=== PATIENT | male | born 1935 | race Caucasian/White ===

== ENCOUNTER 2018-01-08 16:25 | Inpatient (IN) | payer OTHER ==
[2018-01-08] MEDS ORDERED: MAGNESIUM SULFATE 1 gm IVPB 1 GM/100 ML BAG IV ONE (16:46)
[2018-01-08] MEDS ORDERED: METHYLPREDNISOLONE 125 MG INJ ONE (16:46)
[2018-01-08] MEDS ORDERED: LEVALBUTEROL 1.25 MG/3 ML NEB ONE (16:46)
[2018-01-08] MEDS ORDERED: IPRATROPIUM BROM 0.5MG/2.5ML ONE (16:46)
[2018-01-08 17:14] LABS: Absolute Lymphocytes (CBC) 0.3 K/uL (0.7-4.9); Absolute Monocytes 0.5 K/uL (0.1-1.3); Absolute Neutrophil 8.5 K/uL (1.8-8.0); Basophils % 0.1 % (0-1.3); Hematocrit 39.1 % (39.6-49.0); Lymphocytes % 3.2 % (15.3-44.8); MCH 31.1 pg (27.0-35.0); MCV 95.9 fL (80-100); MPV 7.1 fL (7.6-11.3); Monocytes % 5.5 % (3.3-12.3); RBC Red Blood Cell Count 4.08 M/uL (4.33-5.43)
--- NOTE | 2018-01-08 17:30 | EKG ---
Test Date: 2018-01-08 Test Time: 16:55:29 Tool Drawing Checker: YASMANY MEASUREMENT RESULTS: Intervals: Rate: 96 [place]: 246 QRSD: 76 QT: 346 QTc: 437 [place]: P: 81 [place]: 246 QRS: 133 T: 101 INTERPRETIVE STATEMENTS: Sinus rhythm with sinus arrhythmia with 1st degree AV block Left posterior fascicular block Abnormal ECG Compared to ECG 11/28/2016 07:44:26 Left posterior fascicular block now present Myocardial infarct finding no longer present Electronically Signed On 01-08-18 17:30:00 CDT by William Villa
[2018-01-08 17:36] LABS: Blood Morphology Comment NOT SEEN (NOT SEEN); Platelet Estimate ADEQ
[2018-01-08 17:41] LABS: BUN Blood Urea Nitrogen 15 mg/dL (7-18); Bicarbonate 37 mmol/L (21-32); Glucose Level 119 mg/dL (74-106); NT PRO-BNP 708 pg/mL (<450); Potassium 4.6 mmol/L (3.5-5.1); Sodium Level 123 mmol/L (136-145)
--- NOTE | 2018-01-08 17:43 | RAD REPORT ---
EXAM DESCRIPTION: RAD - Chest Single View - 01/08/2018 5:38 pm CLINICAL HISTORY: DYSPNEA Chest pain. COMPARISON: Chest Single View dated 11/28/2016; Chest Single View dated 10/02/2016; Chest Single View dated 09/30/2016; Chest Single View dated 09/30/2016 FINDINGS: Portable technique limits examination quality. Emphysematous changes are present throughout the lungs. No focal infiltrate detected. The heart is no rmal in size. No displaced fractures. IMPRESSION: Diffuse COPD.
[2018-01-08 18:26] LABS: Arterial Blood Carboxyhemoglob 0.8 % (0-1.5); Blood Gas Oxyhemoglobin 92.1 % (94-97)
--- NOTE | 2018-01-08 18:26 | EDPHYS ---
Physician Documentation [facility] Name: Marco Antonio Torrez Age: 82 yrs Sex: Male : 1935 Arrival Date: 01/08/2018 Time: 16:26 Bed 5 Private MD: Hernan Lopez F ED Physician Hans Grace HPI: 01/08 18:09 This 82 yrs old Male presents to ER via Wheelchair with complaints of rn Breathing Difficulty. 18:09 The patient has shortness of breath at rest. rn 18:10 Onset: The symptoms/episode began/occurred 3 day(s) ago. Duration: The symptoms are rn continuous. Severity of symptoms: At their worst the symptoms were moderate in the emergency department the symptoms are unchanged. The patient has experienced similar episodes in the past. Reports hx of COPD, states this is one of his worst flares, + nasal congestion and dry cough, no fever, helps with ipratropium but returns, dyspnea on exertion, no chest pain. . Historical: - Allergies: 16:32 No Known Allergies; sv - Home Meds: 16:32 Atrovent 0.03 % Nasal spry 2 sprays 3 times per day [Active]; Aldactone Oral [Active]; sv Anoro Ellipta 62.5-25 mcg/actuation inhalation dsdv 1 puff once daily [Active]; prednisone 10 mg Oral Tb24 once daily [Active]; Arnuity Ellipta 100 mcg/actuation inhalation dsdv 1 puff once daily [Active]; Alprazolam Oral [Active]; ProAir HFA 90 mcg/actuation inhalation HFAA 2 puffs every 4 hours [Active]; simvastatin 10 mg Oral Tb24 1 tab once daily [Active]; Synthroid 88 mcg Oral Tb24 1 tab once daily [Active]; tamsulosin 0.4 mg Oral cp24 1 cap nightly [Active]; lutien and omega 3 once a day [Active]; home O2 all the time [Active]; - PMHx: 16:32 Arthritis; Colitis; COPD; Hypothyroidism; PROSTATE CA; sv - PSHx: 16:32 L knee; cryo surgery on prostate to remove cancer; sinus; AAA repair; sv - Immunization history:: Adult Immunizations up to date. - Social history:: Smoking status: Patient/guardian denies using tobacco. - Family history:: not pertinent. - Ebola Screening: : Patient negative for fever greater than or equal to 101.5 degrees Fahrenheit, and additional compatible Ebola Virus Disease symptoms Patient denies exposure to infectious person Patient denies travel to an Ebola-affected area in the 21 days before illness onset No symptoms or risks identified at this time. - Hospitalizations: : No recent hospitalization is reported. ROS: 18:10 Constitutional: Negative for fever, chills, and weight loss, Eyes: Negative for injury, rn pain, redness, and discharge, Neck: Negative for injury, pain, and swelling, Cardiovascular: Negative for chest pain, palpitations, and edema, Respiratory: + cough and sob Abdomen/GI: Negative for abdominal pain, nausea, vomiting, diarrhea, and constipation, MS/Extremity: Negative for injury and deformity, Skin: Negative for injury, rash, and discoloration, Neuro: + generalized weakness Exam: 18:10 Constitutional: This is a well developed, well nourished patient who is awake, alert, rn sitting upright, appears uncomfortable Head/Face: Normocephalic, atraumatic. Neck: Trachea midline, no thyromegaly or masses palpated, and no cervical lymphadenopathy. Supple, full range of motion without nuchal rigidity, or vertebral point tenderness. No Meningismus. Cardiovascular: Regular rate and rhythm with a normal S1 and S2. No gallops, murmurs, or rubs. Normal PMI, no JVD. No pulse deficits. Respiratory: + moderate tachypnea with pursed lip breathing, minimal air movement Abdomen/GI: Soft, non-tender, with normal bowel sounds. No distension or tympany. No guarding or rebound. No evidence of tenderness throughout. MS/ Extremity: Pulses equal, no cyanosis. Neurovascular intact. Full, normal range of motion. Equal circumference. Neuro: Awake and alert, GCS 15, oriented to person, place, time, and situation. Cranial nerves II-XII grossly intact. Motor strength 5/5 in all extremities. Sensory grossly intact. Vital Signs: 16:32 BP 117 / 86; Pulse 87; Resp 22; Pulse Ox 99% on 2.5 lpm NC; Weight 81.65 kg; Height 5 sv ft. 10 in. (177.80 cm); 16:35 Pulse Ox 88% on R/A; aj 17:00 BP 133 / 97; Pulse 98; Resp 24; Pulse Ox 95% on 3 lpm NC; aj 17:30 BP 138 / 76; Pulse 94; Resp 23; Pulse Ox 99% on 3 lpm NC; aj 17:45 BP 121 / 70; Pulse 100; Resp 24; Pulse Ox 96% on 3 lpm NC; aj 18:16 BP 142 / 95; Pulse 83; Resp 24; Pulse Ox 95% on 3 lpm NC; aj 19:10 BP 141 / 88; Pulse 82; Resp 18 S; Pulse Ox 100% on BiPAP; ea 16:32 Body Mass Index 25.83 (81.65 kg, 177.80 cm) sv MDM: 16:34 Patient medically screened. rn 18:13 Differential diagnosis: Chronic Obstructive Pulmonary Disease Pneumothorax pulmonary rn edema, reactive airway disease. Data reviewed: vital signs, nurses notes, lab test result(s), radiologic studies, plain films, and as a result, I will discharge patient. Counseling: I had a detailed discussion with the patient and/or guardian regarding: the historical points, exam findings, and any diagnostic results supporting the discharge/admit diagnosis, lab results, radiology results, the need for further work-up and treatment in the hospital. Response to treatment: the patient's symptoms have mildly improved after treatment. Admission orders: after a detailed discussion of the patient's condition and case, the admit orders are written by me. ED course: Pt still not back to baseline, will admit to Dr. Lopez, Dr. Hernadez covering, requests bipap and baseline ABG. . 01/08 16:43 Order name: Blood Culture Adult (2) rn 01/08 16:43 Order name: BMP; Complete Time: 17:59 rn 01/08 16:43 Order name: CBC with Diff; Complete Time: 17:45 rn 01/08 16:43 Order name: Troponin (emerg Dept Use Only); Complete Time: 17:45 rn 01/08 16:43 Order name: BNP; Complete Time: 17:59 rn 01/08 17:17 Order name: Manual Differential; Complete Time: 17:45 EDMS 01/08 16:43 Order name: XRAY CXR (1 view); Complete Time: 17:45 rn 01/08 16:43 Order name: EKG; Complete Time: 16:44 rn 01/08 18:07 Order name: ABG; Complete Time: 18:43 rn 01/08 18:07 Order name: BIPAP rn 01/08 16:43 Order name: Cardiac monitoring; Complete Time: 17: rn 01/08 16:43 Order name: EKG - Nurse/Tech; Complete Time: 17: rn 01/08 16:43 Order name: IV Saline Lock; Complete Time: 17: rn 01/08 16:43 Order name: Labs collected and sent; Complete Time: 17: rn 01/08 16:43 Order name: O2 Per Protocol; Complete Time: 17: rn 01/08 16:43 Order name: O2 Sat Monitoring; Complete Time: 17:02 rn Administered Medications: 17:00 Drug: Magnesium Sulfate 1 grams Route: IVPB; Infused Over: 1 hrs; Site: right aj antecubital; 20:21 Follow up: Response: No adverse reaction; IV Status: Completed infusion ea 17:01 Drug: SOLU-Medrol 125 mg Route: IVP; Site: right antecubital; aj 19:12 Follow up: Response: No adverse reaction ea 17:01 Drug: Xopenex (3) 1.25 mg Route: Inhalation; aj 17:01 Drug: AtroVENT Aerosol 0.5 mg Route: Inhalation; Disposition: 18:13 Critical Care:. rn Disposition: 01/08/18 18:25 Hospitalization ordered by Hernan Lopez for Inpatient Admission. Preliminary diagnosis are Chronic obstructive pulmonary disease, unspecified, Dyspnea, unspecified. - Bed requested for Telemetry/MedSurg (Inpatient). - Status is Inpatient Admission. ea - Condition is Stable. - Problem is new. - Symptoms have improved. UTI on Admission? No Critical care time excluding procedures: 18:13 Critical care time: Bedside Care: 20 minutes, Consultation: 5 minutes, Family rn Intervention: 5 minutes. Total time: 30 minutes Signatures: Dispatcher [employer] EDTiffany Jeffers Stephanie, RN RN sv Myers, Amanda, RN RN aj Nieto, Roman, MD MD rn Antunez, Elena, RN RN ea Corrections: (The following items were deleted from the chart) 18:20 18:10 Constitutional: This is a well developed, well nourished patient who is awake, rn alert, sitting upright, appears uncomfortable rn 18:41 18:25 Hospitalization Ordered by Hernan Lopez MD for Inpatient Admission. Preliminary bd diagnosis is Chronic obstructive pulmonary disease, unspecified; Dyspnea, unspecified. Bed requested for Telemetry/MedSurg (Inpatient). Status is Inpatient Admission. Condition is Stable. Problem is new. Symptoms have improved. UTI on Admission? No. rn 20:24 18:41 01/08/2018 18:25 Hospitalization Ordered by Hernan Lopez MD for Inpatient ea Admission. Preliminary diagnosis is Chronic obstructive pulmonary disease, unspecified; Dyspnea, unspecified. Bed requested for Telemetry/MedSurg (Inpatient). Status is Inpatient Admission. Condition is Stable. Problem is new. Symptoms have improved. UTI on Admission? No. bd
--- NOTE | 2018-01-08 18:26 | ER ---
Nurse's Notes [facility] Name: Marco Antonio Torrez Age: 82 yrs Sex: Male : 1935 Arrival Date: 01/08/2018 Time: 16:26 Bed 5 Private MD: Hernan Lopez F Diagnosis: Chronic obstructive pulmonary disease, unspecified;Dyspnea, unspecified Presentation: 01/08 16:29 Presenting complaint: Patient states: SOB worsened over the last couple of days. Nasal sv drainage. Pt uses O2 \T\ 2.5 L per NC. Transition of care: patient was not received from another setting of care. Onset of symptoms was January 06, 2018. Risk Assessment: Do you want to hurt yourself or someone else? Patient reports no desire to harm self or others. Care prior to arrival: None. 16:29 Method Of Arrival: Wheelchair sv 16:29 Acuity: NATALIE 3 sv 20:19 Initial Sepsis Screen: Does the patient meet any 2 criteria? No. Patient's initial ea sepsis screen is negative. Does the patient have a suspected source of infection? No. Patient's initial sepsis screen is negative. Triage Assessment: 19:00 Respiratory: the patient has mild shortness of breath. ea 20:20 Respiratory: Onset: The symptoms/episode began/occurred. ea Historical: - Allergies: 16:32 No Known Allergies; sv - Home Meds: 16:32 Atrovent 0.03 % Nasal spry 2 sprays 3 times per day [Active]; Aldactone Oral [Active]; sv Anoro Ellipta 62.5-25 mcg/actuation inhalation dsdv 1 puff once daily [Active]; prednisone 10 mg Oral Tb24 once daily [Active]; Arnuity Ellipta 100 mcg/actuation inhalation dsdv 1 puff once daily [Active]; Alprazolam Oral [Active]; ProAir HFA 90 mcg/actuation inhalation HFAA 2 puffs every 4 hours [Active]; simvastatin 10 mg Oral Tb24 1 tab once daily [Active]; Synthroid 88 mcg Oral Tb24 1 tab once daily [Active]; tamsulosin 0.4 mg Oral cp24 1 cap nightly [Active]; lutien and omega 3 once a day [Active]; home O2 all the time [Active]; - PMHx: 16:32 Arthritis; Colitis; COPD; Hypothyroidism; PROSTATE CA; sv - PSHx: 16:32 L knee; cryo surgery on prostate to remove cancer; sinus; AAA repair; sv - Immunization history:: Adult Immunizations up to date. - Social history:: Smoking status: Patient/guardian denies using tobacco. - Family history:: not pertinent. - Ebola Screening: : Patient negative for fever greater than or equal to 101.5 degrees Fahrenheit, and additional compatible Ebola Virus Disease symptoms Patient denies exposure to infectious person Patient denies travel to an Ebola-affected area in the 21 days before illness onset No symptoms or risks identified at this time. - Hospitalizations: : No recent hospitalization is reported. Screenin:14 Abuse screen: Denies threats or abuse. Denies injuries from another. Nutritional aj screening: No deficits noted. Tuberculosis screening: No symptoms or risk factors identified. Fall Risk None identified. Assessment: 16:35 General: Appears in no apparent distress. uncomfortable, Behavior is calm, cooperative, aj appropriate for age. Pain: Denies pain. Neuro: Level of Consciousness is awake, alert, obeys commands, Oriented to person, place, time, situation, Appropriate for age. Cardiovascular: Capillary refill < 3 seconds in bilateral fingers Patient's skin is warm and dry. Rhythm is atrial fibrillation. Respiratory: Reports shortness of breath at rest Airway is patent Respiratory effort is even, pursed lip, Respiratory pattern is symmetrical, tachypnea Breath sounds are diminished bilaterally. GI: Abdomen is round. Derm: Skin is intact, is fragile, is thin, Skin is pink, warm \T\ dry. normal. 19:15 General: Appears in no apparent distress. Behavior is calm, cooperative, appropriate ea for age. Pain: Denies pain. Neuro: Level of Consciousness is awake, alert, obeys commands, Oriented to person, place, time, situation. Cardiovascular: Heart tones S1 S2 present Patient's skin is warm and dry. Respiratory: Airway is patent Respiratory effort is even, Pt currently on BiPap Respiratory pattern is regular, symmetrical, Breath sounds are diminished in left lower lobe and right lower lobe. GI: Abdomen is round Patient currently denies abdominal pain. : No signs and/or symptoms were reported regarding the genitourinary system. EENT: No signs and/or symptoms were reported regarding the EENT system. Derm: Skin is pink, warm \T\ dry. 20:16 Reassessment: Patient and/or family updated on plan of care and expected duration. Pain ea level reassessed. Patient is alert, oriented x 3, equal unlabored respirations, skin warm/dry/pink. Report given to receiving nurse on fourth floor. Vital Signs: 16:32 BP 117 / 86; Pulse 87; Resp 22; Pulse Ox 99% on 2.5 lpm NC; Weight 81.65 kg; Height 5 sv ft. 10 in. (177.80 cm); 16:35 Pulse Ox 88% on R/A; aj 17:00 BP 133 / 97; Pulse 98; Resp 24; Pulse Ox 95% on 3 lpm NC; aj 17:30 BP 138 / 76; Pulse 94; Resp 23; Pulse Ox 99% on 3 lpm NC; aj 17:45 BP 121 / 70; Pulse 100; Resp 24; Pulse Ox 96% on 3 lpm NC; aj 18:16 BP 142 / 95; Pulse 83; Resp 24; Pulse Ox 95% on 3 lpm NC; aj 19:10 BP 141 / 88; Pulse 82; Resp 18 S; Pulse Ox 100% on BiPAP; ea 16:32 Body Mass Index 25.83 (81.65 kg, 177.80 cm) sv ED Course: 16:26 Patient arrived in ED. mr 16:27 Hernan Lopez MD is Private Physician. mr 16:30 Triage completed. sv 16:32 Arm band placed on right wrist. sv 16:34 Hans Grace MD is Attending Physician. rn 16:35 Inserted saline lock: 20 gauge in right antecubital area, using aseptic technique. aj Blood collected. Oxygen administration via nasal cannula \T\ 3L/min. 16:40 Patient has correct armband on for positive identification. monitor worker on. Pulse aj ox on. NIBP on. 17:00 Екатерина Meza, MARINA is Primary Nurse. aj 17:01 EKG done, by network support technician. reviewed by Hans Grace MD. sm3 17:23 X-ray completed. Portable x-ray completed in exam room. Patient tolerated procedure kc2 well. 17:36 XRAY CXR (1 view) In Process Unspecified. EDMS 18:24 Hernan Lopez MD is Hospitalizing Provider. rn 19:09 Katharina Zazueta, MARINA is Primary Nurse. ea 20:17 No provider procedures requiring assistance completed. Patient admitted, IV remains in ea place. Administered Medications: 17:00 Drug: Magnesium Sulfate 1 grams Route: IVPB; Infused Over: 1 hrs; Site: right aj antecubital; 20:21 Follow up: Response: No adverse reaction; IV Status: Completed infusion ea 17:01 Drug: SOLU-Medrol 125 mg Route: IVP; Site: right antecubital; aj 19:12 Follow up: Response: No adverse reaction ea 17:01 Drug: Xopenex (3) 1.25 mg Route: Inhalation; aj 17:01 Drug: AtroVENT Aerosol 0.5 mg Route: Inhalation; Outcome: 18:25 Decision to Hospitalize by Provider. rn 20:17 Admitted to Med/surg accompanied by tech, via stretcher, room 422, with oxygen, with ea chart, Report called to Receiving nurse on fourth. 20:17 Condition: stable 20:17 Instructed on the need for admit. 20:24 Patient left the ED. ea Signatures: Dispatcher [employer] Nazanin Begum, Екатерина Berg RN RN Holley Terrell Roman, MD MD rn Carr, Kelsie kc2 Katharina Zazueta RN RN ea Montes, Shakira 3
[2018-01-08] MEDS ORDERED: IPRATROPIUM BROM 0.5MG/2.5ML NEB PRN (20:35)
[2018-01-08] MEDS ORDERED: ALBUTEROL 2.5 MG/3 ML NEB SOL NEB PRN (20:35)
[2018-01-08] MEDS ORDERED: ONDANSETRON 4 MG/2 ML VIAL IV PRN (20:35)
[2018-01-08 20:55] VITALS: BMI 25.2
[2018-01-09] MEDS: ARFORMOTEROL TARTRATE 15 MCG/2 ML VIAL.NEB NEB SCH ×3 (00:05→19:33)
[2018-01-09] MEDS ORDERED: ALPRAZOLAM 0.25 MG TABLET PO PRN (00:07)
[2018-01-09] MEDS: levoFLOXacin 500 MG TAB PO SCH ×2 (00:31→09:48)
[2018-01-09] MEDS: METHYLPREDNISOLONE 40 MG INJ IV SCH ×3 (00:31→16:54)
[2018-01-09 05:02] LABS: Absolute Lymphocytes (CBC) 0.4 K/uL (0.7-4.9); Absolute Monocytes 0.1 K/uL (0.1-1.3); Absolute Neutrophil 8.6 K/uL (1.8-8.0); Basophils % 0.1 % (0-1.3); Hematocrit 37.5 % (39.6-49.0); Lymphocytes % 4.3 % (15.3-44.8); MCH 30.9 pg (27.0-35.0); MCV 94.9 fL (80-100); MPV 7.4 fL (7.6-11.3); RBC Red Blood Cell Count 3.95 M/uL (4.33-5.43)
[2018-01-09 05:08] LABS: Potassium 4.7 mmol/L (3.5-5.1)
[2018-01-09] MEDS: LEVOTHYROXINE SOD 0.088 MG TAB PO SCH (07:12)
[2018-01-09] MEDS: NITROFURAN MACRO 100 MG CAP PO SCH ×2 (09:48→20:09)
[2018-01-09] MEDS: clonazePAM 0.5 MG TAB PO SCH (09:48)
--- NOTE | 2018-01-09 10:10 | P.CNS ---
Date of Consult: 01/09/18 Reason for Consult: COPD exacerbation Chief Complaint: Shortness of breath History of Present Illness: The patient is 82 years of age admitted with worsening dyspnea over the past 2 weeks he has terminal COPD last exacerbation was about a year ago been coughing up some productive phlegm me patient increase his prednisone to 30 mg at home with no relief is doing much better today denies any edema wants to go home Allergies No Known Allergies Allergy (Verified 01/09/18 02:22) Home Medications: Levothyroxine [Synthroid*] 88 mcg PO [id number] 02/04/16 Simvastatin [Zocor*] 10 mg PO BEDTIME 02/04/16 predniSONE [Deltasone*] 10 mg PO DAILY 02/04/16 Albuterol Sulfate [Proair Hfa] 2 puff IH QID PRN 09/30/16 Fluticasone Furoate [Arnuity Ellipta] 1 puff IH DAILY 09/30/16 [place]-3/Dha/Epa/Lut/Zeaxanthin [[facility] Softgel] 1 cap PO DAILY Umeclidinium Brm/Vilanterol Tr [Anoro Ellipta 62.5-25 Mcg INH] 1 each IH DAILY 09/30/16 Alprazolam [Xanax] 0.25 mg PO TID PRN 01/09/18 Ipratropium [Atrovent 0.03% (21MCG)/[place] Nasal*] 2 sprays .ROUTE TID PRN Mesalamine 0.2 gm PO BID 01/09/18 Nitrofurantoin Macrocrystal [Macrodantin] 100 mg PO BID 01/09/18 Spironolactone 25 mg PO BID 01/09/18 clonazePAM [Clonazepam] 0.5 mg PO DAILY 01/09/18 levoFLOXacin [Levaquin*] 500 mg PO DAILY #7 tab 01/09/18 Ipratropium/Albuterol Sulfate [Iprat-Albut 0.5-3(2.5) mg/3 ml] 3 ml IH TID #90 ampul.neb 01/10/18 - Past Medical/Surgical History Diabetic: No -: Terminal COPD -: colitis -: arthritis -: Hypothyrodism -: Prostate cancer -: abdomen surgery -: left knee surgery - Family History Father Medical History: Heart disease, Lung disease Mother Medical History: Heart disease - Social History Smoking Status: Former smoker Alcohol use: No CD- Drugs: No Caffeine use: No Place of Residence: Home Review of Systems 10-point ROS is otherwise unremarkable General: Weakness Respiratory: Cough, Shortness of Breath Physical Examination Temp Pulse Resp BP Pulse Ox 97.1 F 93 H 16 158/68 H 99 01/09/18 07:51 01/09/18 07:51 01/09/18 07:51 01/09/18 07:51 01/09/18 07:51 General: Alert, Oriented x3, Mild distress HEENT: Atraumatic Neck: Supple Respiratory: Diminished, Expiratory wheezes Cardiovascular: No edema, Regular rate/rhythm Gastrointestinal: Normal bowel sounds, Soft and benign Laboratory Data (last 24 hrs) 01/08/18 16:55: WBC 9.3, Hgb 12.7 L, Hct 39.1 L, Plt Count 413 H 01/08/18 16:55: Sodium 123 L, Potassium 4.6, BUN 15, Creatinine 0.70, Glucose 119 H - Problems (1) COPD (chronic obstructive pulmonary disease) Onset Date: 10/01/16 Current Visit: No Status: Acute Plan: Patient is 82 years of age with terminal COPD admitted with an exacerbation he is back to his baseline chest x-rays clear no evidence of ongoing sepsis I suggest keeping in him for another day and has patient is high risk and he took high doses of steroids at home discharge tomorrow on prednisone 10 b.i.d. in addition to some levofloxacin patient is mildly hyponatremia Qualifiers: COPD type: COPD with acute exacerbation Qualified Code(s): J44.1 - Chronic obstructive pulmonary disease with (acute) exacerbation
[2018-01-09 10:17] LABS: Urine Appearance CLEAR; Urine Bilirubin NEGATIVE (NEG); Urine Blood NEGATIVE (NEG); Urine Color YELLOW; Urine Glucose 2+ (NEG); Urine Protein TRACE (NEG); Urine Specific Gravity 1.025 (1.005-1.030); Urine pH 6.5 (5.0-7.0)
[2018-01-09 10:28] LABS: Urine Bacteria <20 /HPF (NONE SEEN); Urine Culture Reflex Order NOT NEEDED; Urine RBC <5 /HPF (NONE SEEN)
--- NOTE | 2018-01-09 11:13 | RAD REPORT ---
EXAM DESCRIPTION: RAD - Chest Single View - 01/09/2018 6:11 am CLINICAL HISTORY: COPD Chest pain. COMPARISON: Chest Single View dated 01/08/2018; Chest Single View dated 11/28/2016; Chest Single View dated 10/02/2016; Chest Single View dated 09/30/2016 FINDINGS: Portable technique limits examination quality. Ill-defined right basilar lung opacity has developed since the comparative study, which may represent aspiration or atelectasis. The lungs are otherwise emphysematous. The heart is normal in size. No di splaced fractures. IMPRESSION: Ill-defined right basilar lung opacity has developed since comparative study, which may be secondary to aspiration or atelectasis.
[2018-01-09] MEDS: MESALAMINE PO SCH (20:12)
[2018-01-09] MEDS ORDERED: ATORVASTATIN 10 MG TAB PO SCH ×2 (21:00→23:42)
[2018-01-10] MEDS: METHYLPREDNISOLONE 40 MG INJ IV SCH ×2 (00:28→08:30)
[2018-01-10] MEDS: LEVOTHYROXINE SOD 0.088 MG TAB PO SCH (05:37)
[2018-01-10] MEDS: ARFORMOTEROL TARTRATE 15 MCG/2 ML VIAL.NEB NEB SCH (07:37)
[2018-01-10 08:23] VITALS: BP 121/66; TEMP 97.9
[2018-01-10] MEDS: levoFLOXacin 500 MG TAB PO SCH (08:30)
[2018-01-10] MEDS: NITROFURAN MACRO 100 MG CAP PO SCH (08:30)
[2018-01-10] MEDS: clonazePAM 0.5 MG TAB PO SCH (08:30)
[2018-01-10] MEDS: MESALAMINE PO SCH (08:31)
[2018-01-10 09:33] VITALS: O2SAT 100
--- NOTE | 2018-01-10 10:32 | P.DS ---
Admission Date: 01/08/18 Discharge Date: 01/10/18 Disposition: ROUTINE DISCHARGE Discharge Condition: FAIR Reason for Admission: Shortness of breath - Problems (1) COPD (chronic obstructive pulmonary disease) Onset Date: 10/01/16 Current Visit: No Status: Acute Qualifiers: COPD type: COPD with acute exacerbation Qualified Code(s): J44.1 - Chronic obstructive pulmonary disease with (acute) exacerbation Brief History of Present Illness: The patient is 82 years of age admitted with worsening dyspnea over the past 2 weeks he has terminal COPD last exacerbation was about a year ago been coughing up some productive phlegm me patient increase his prednisone to 30 mg at home with no relief is doing much better today denies any edema wants to go home Hospital Course: Patient is 82 years of age admitted with COPD exacerbation labs unremarkable no evidence of an infection. He did well during the course of his stay unremarkable stay patient to be discharged home on his regular medication I have also fax the prescription in for a nebulizer and nebulizer medication pertinent labs include mild hyponatremia oxygenation vital signs all satisfactory cultures negative he is to resume all his home medication except to increase prednisone to 10 twice a day for 10 days and I have also sent in a prescription in for levofloxacin Vital Signs/Physical Exam: Temp Pulse Resp BP Pulse Ox 97.9 F 84 20 121/66 100 01/10/18 08:00 01/10/18 08:00 01/10/18 08:00 01/10/18 08:00 01/10/18 08:00 Laboratory Data at Discharge: WBC 9.1 K/uL (4.3-10.9) 01/09/18 04:27 Hgb 12.2 g/dL (13.6-17.9) L 01/09/18 04:27 Hct 37.5 % (39.6-49.0) L 01/09/18 04:27 Plt Count 396 K/uL (152-406) 01/09/18 04:27 Sodium 126 mmol/L (136-145) L 01/09/18 04:27 Potassium 4.7 mmol/L (3.5-5.1) 01/09/18 04:27 BUN 18 mg/dL (7-18) 01/09/18 04:27 Creatinine 0.90 mg/dL (0.55-1.3) 01/09/18 04:27 Glucose 201 mg/dL (74-106) H 01/09/18 04:27 Home Medications: Levothyroxine [Synthroid*] 88 mcg PO [id number] 02/04/16 Simvastatin [Zocor*] 10 mg PO BEDTIME 02/04/16 predniSONE [Deltasone*] 10 mg PO DAILY 02/04/16 Albuterol Sulfate [Proair Hfa] 2 puff IH QID PRN 09/30/16 Fluticasone Furoate [Arnuity Ellipta] 1 puff IH DAILY 09/30/16 [place]-3/Dha/Epa/Lut/Zeaxanthin [[facility] Softgel] 1 cap PO DAILY Umeclidinium Brm/Vilanterol Tr [Anoro Ellipta 62.5-25 Mcg INH] 1 each IH DAILY 09/30/16 Alprazolam [Xanax] 0.25 mg PO TID PRN 01/09/18 Ipratropium [Atrovent 0.03% (21MCG)/[place] Nasal*] 2 sprays .ROUTE TID PRN Mesalamine 0.2 gm PO BID 01/09/18 Nitrofurantoin Macrocrystal [Macrodantin] 100 mg PO BID 01/09/18 Spironolactone 25 mg PO BID 01/09/18 clonazePAM [Clonazepam] 0.5 mg PO DAILY 01/09/18 levoFLOXacin [Levaquin*] 500 mg PO DAILY #7 tab 01/09/18 Ipratropium/Albuterol Sulfate [Iprat-Albut 0.5-3(2.5) mg/3 ml] 3 ml IH TID #90 ampul.neb 01/10/18 New Medications: Ipratropium/Albuterol Sulfate [Iprat-Albut 0.5-3(2.5) mg/3 ml] 3 ml IH TID #90 ampul.neb levoFLOXacin [Levaquin*] 500 mg PO DAILY #7 tab Patient Discharge Instructions: Patient can be discharged home to take prednisone 10 mg twice a day for 2 weeks levofloxacin called in for 7 days resume other home medications Diet: Regular Activity: Ad trev Followup: Hernan Lopez MD [Primary Care Provider] - 1-2 Weeks (Please call office to schedule follow up appointment. )
== END 2018-01-10 11:24 | disposition home or self-care (01) | DRG 192 ==
LOC: ER 16:25 → ERHOLD 18:27 → 4TH 19:39
PROVIDERS: ADMIT Internal Medicine Sleep Medicine; ATTEND Internal Medicine
PROC: 5A09357 Assistance with Respiratory Ventilation, Less than 24 Consecutive Hours, Continuous Positive Airway Pressure (ICD-10-PCS; principal; 2018-01-08)
DX: J44.1 Chronic obstructive pulmonary disease with (acute) exacerbation (principal); M19.90 Unspecified osteoarthritis, unspecified site; E03.9 Hypothyroidism, unspecified
CPT/HCPCS: 36415; 71045; 80048; 81001; 82805; 83880; 84484; 85025; 87040; 93005; 94640; 94660; 94760; 96365; 96366; 96375; 99285; J2920; J2930; J3475; J7605

== ENCOUNTER 2018-02-04 12:00 | Inpatient (IN) | payer OTHER ==
[2018-02-04] MEDS ORDERED: LEVALBUTEROL 1.25 MG/3 ML NEB ONE ×2 (12:06→13:37)
[2018-02-04] MEDS ORDERED: METHYLPREDNISOLONE 125 MG INJ ONE (12:12)
[2018-02-04] MEDS ORDERED: NA CHLORIDE 0.9% 500 ML ONE (12:12)
[2018-02-04] MEDS ORDERED: Magnesium Sulfate 1gm IVPB 1 GM/50 ML BAG IV ONE (12:12)
[2018-02-04 12:29] LABS: Absolute Lymphocytes (CBC) 0.5 K/uL (0.7-4.9); Absolute Monocytes 0.6 K/uL (0.1-1.3); Absolute Neutrophil 9.2 K/uL (1.8-8.0); Basophils % 0.1 % (0-1.3); Eosinophils % 0.1 % (0-4.4); Hematocrit 35.9 % (39.6-49.0); Lymphocytes % 5.2 % (15.3-44.8); MCH 31.2 pg (27.0-35.0); MCV 94.6 fL (80-100); MPV 7.4 fL (7.6-11.3); RBC Red Blood Cell Count 3.79 M/uL (4.33-5.43)
[2018-02-04 12:32] LABS: Protime INR 1.08
[2018-02-04 12:41] LABS: BUN Blood Urea Nitrogen 16 mg/dL (7-18); Bicarbonate 32 mmol/L (21-32); Glucose Level 187 mg/dL (74-106); Magnesium 2.5 mg/dL (1.8-2.4); NT PRO-BNP 931 pg/mL (<450); Potassium 4.5 mmol/L (3.5-5.1); Sodium Level 134 mmol/L (136-145)
[2018-02-04 12:59] LABS: Blood Morphology Comment NOT SEEN (NOT SEEN); Platelet Estimate ADEQ
--- NOTE | 2018-02-04 13:21 | RAD REPORT ---
EXAM DESCRIPTION: RAD - Chest Single View - 02/04/2018 1:03 pm CLINICAL HISTORY: DYSPNEA Chest pain. COMPARISON: Chest Single View dated 01/09/2018; Chest Single View dated 01/08/2018; Chest Single View dated 11/28/2016; Chest Single View dated 10/02/2016 FINDINGS: Portable technique limits examination quality. The lungs are emphysematous grossly clear. The heart is normal in size. No displaced fractures. IMPRESSION: COPD.
[2018-02-04] MEDS ORDERED: IPRATROPIUM BROM 0.5MG/2.5ML ONE (13:37)
--- NOTE | 2018-02-04 13:52 | EKG ---
Test Date: 2018-02-04 Test Time: 12:12:44 Retail Field Representative: ROMY MEASUREMENT RESULTS: Intervals: Rate: 139 NH: 186 QRSD: 80 QT: 314 QTc: 477 [place]: P: 106 NH: 186 QRS: 79 T: 88 INTERPRETIVE STATEMENTS: Sinus tachycardia with premature atrial complexes Cannot rule out Anterior infarct, age undetermined Abnormal ECG Compared to ECG 01/08/2018 16:55:29 Atrial premature complex(es) now present Myocardial infarct finding now present Sinus rhythm no longer present Sinus arrhythmia no longer present First degree AV block no longer present Left posterior fascicular block no longer present Electronically Signed On 02-04-18 13:51:31 CDT by William Villa
--- NOTE | 2018-02-04 14:17 | RAD REPORT ---
EXAM DESCRIPTION: CT - Chest For Pe Angio - 02/04/2018 2:06 pm CLINICAL HISTORY: Chest pain. DYSPNEA COMPARISON: Chest For Pe Angio dated 09/30/2016 TECHNIQUE: CT angiogram of the pulmonary arteries was performed with MIP. All CT scans are performed using dose optimization technique as appropriate and may include automated exposure control or mA/KV adjustment according to patient size. FINDINGS: No evidence of pulmonary thromboembolism. No acute aortic finding demonstrated. Atherosclerotic changes present involving aortic arch great ves freeman origins. Prominent advanced COPD pattern is seen. A spiculated soft tissue mass is identified in the right inf rahilar region measuring 19 x 18 mm abutting the inferior right pulmonary vein. No significant pericardial or pleural fluid. No concerning bony finding. IMPRESSION: No evidence of pulmonary thromboembolism. Advanced COPD. Spiculated soft tissue mass is detected right infrahilar region abutting the right inf erior pulmonary vein (19 x 18 mm) quite worrisome for malignancy. Recommend PET-CT followup assessmen t or bronchoscopy for further workup.
--- NOTE | 2018-02-04 14:22 | RAD REPORT ---
EXAM DESCRIPTION: CT - Soft Tissue Neck W/Contr CLINICAL HISTORY: dyspnea, possible foreign body Neck pain COMPARISON: No comparisons TECHNIQUE All CT scans are performed using dose optimization technique as appropriate and may includ e automated exposure control or mA/KV adjustment according to patient size. FINDINGS: Nasopharyngeal tissues are normal in appearance. Fossa Rosenmller are normal. Parapharyngeal fat triangles are symmetric. Tongue base structures are normal. Epiglottis and aryepiglottic folds are normal. Piriform sinuses are well aerated. The vocal cords are normal in appearance. Salivary glands are normal in appearance. Moderate lower cervical degenerative changes are present. The upper lung marte are emphysematous. No foreign body visualized. IMPRESSION: No foreign body is visualized. No acute or aggressive neck abnormality detected.
--- NOTE | 2018-02-04 14:49 | ER ---
Nurse's Notes [facility] Name: Marco Antonio Torrez Age: 82 yrs Sex: Male : 1935 Arrival Date: 02/04/2018 Time: 12:01 Bed 4 Private MD: Hernan Lopez F Diagnosis: Chronic obstructive pulmonary disease with (acute) exacerbation;Hypoxemia;Lung mass Presentation: 02/04 12:04 Presenting complaint: EMS states: pt was eating breakfast tacos this morning when he sg began to choke on some food, after coughing he felt better but still felt like food was in his throat, pt reports difficulty breathing at rest. Transition of care: patient was not received from another setting of care. Onset of symptoms was February 04, 2018. Risk Assessment: Do you want to hurt yourself or someone else? Patient reports no desire to harm self or others. Initial Sepsis Screen: Does the patient meet any 2 criteria? No. Patient's initial sepsis screen is negative. Does the patient have a suspected source of infection? No. Patient's initial sepsis screen is negative. Note EMS report 78 % o2 saturation on 2.5 lpm NC, placed to NRB and increased to 97 % on 15 lpm, upon auscultation of lungs reports crackles throughout lung bases posteriorly. Care prior to arrival: IV initiated. 20 GA, in the left hand, Oxygen administered. via a non-rebreather mask. 12:04 Acuity: NATALIE 2 sg 12:04 Method Of Arrival: EMS: [facility] sg Triage Assessment: 12:15 General: Appears distressed, uncomfortable, ill, well developed, well nourished. sg Respiratory: Reports shortness of breath labored breathing Onset: The symptoms/episode began/occurred gradually, the patient has moderate shortness of breath. Historical: - Allergies: 12:03 No Known Allergies; sg - Home Meds: 12:18 prednisone 10 mg Oral Tb24 once daily [Active]; clonazepam 0.5 mg Oral tab 1 tab 3 sg times per day [Active]; mesalamine oral 1.2 gm oral 1 cap 2 times per day for Ulcerative Colitis [Active]; simvastatin 20 mg Oral tab 1 tab once daily [Active]; levothyroxine 88 mcg tab 1 tab once daily [Active]; Arnuity Ellipta 200 mcg/actuation inhalation dsdv 1 puff once daily [Active]; azelastine 0.05 % ophthalmic drop 1 drop 2 times per day [Active]; ProAir HFA 90 mcg/actuation inhalation HFAA 2 puffs every 4 hours [Active]; Anoro Ellipta 62.5-25 mcg/actuation inhalation dsdv 1 puff once daily [Active]; spironolactone 25 mg Oral tab 1 tab 2 times per day [Active]; levofloxacin 500 mg Oral tab 1 tab once daily [Active]; - PMHx: 12:03 Arthritis; Colitis; COPD; Hypothyroidism; PROSTATE CA; sg - PSHx: 12:03 L knee; cryo surgery on prostate to remove cancer; sinus sx; AAA repair; sg - Immunization history:: Adult Immunizations up to date. - Social history:: Smoking status: Patient/guardian denies using tobacco. - Ebola Screening: : Patient negative for fever greater than or equal to 101.5 degrees Fahrenheit, and additional compatible Ebola Virus Disease symptoms Patient denies exposure to infectious person Patient denies travel to an Ebola-affected area in the 21 days before illness onset No symptoms or risks identified at this time. - Family history:: not pertinent. - Hospitalizations: : No recent hospitalization is reported. Screenin:10 Abuse screen: Denies threats or abuse. Denies injuries from another. Nutritional sg screening: No deficits noted. Tuberculosis screening: No symptoms or risk factors identified. Never had TB. Fall Risk None identified. Assessment: 12:08 General: Appears distressed, ill, well groomed, well developed, well nourished, sg Behavior is cooperative, anxious. Pain: Denies pain. Neuro: Level of Consciousness is awake, alert, obeys commands, Oriented to person, place, time, situation, Audio/Visual Manager are equal bilaterally Moves all extremities. Full function Gait is steady, Speech is normal, Facial symmetry appears normal, Denies weakness blurred vision dizziness, difficulty swallowing, paresthesias numbness headache photophobia diplopia. Cardiovascular: Heart tones S1 S2 present Capillary refill is brisk in bilateral fingers Patient's skin is warm and dry. Rhythm is sinus tachycardia Chest pain is denied. Respiratory: Airway is patent Trachea midline Respiratory effort is even, labored, shallow, Respiratory pattern is symmetrical, tachypnea Breath sounds with crackles bilaterally. GI: Abdomen is round distended, obese, Bowel sounds present X 4 quads. : No signs and/or symptoms were reported regarding the genitourinary system. EENT: No signs and/or symptoms were reported regarding the EENT system. Derm: Skin is intact, is thin, Skin is dry, Skin is pale, Skin temperature is warm. Musculoskeletal: No signs and/or symptoms reported regarding the musculoskeletal system. 12:45 Reassessment: Patient appears in no apparent distress at this time. Patient and/or sg family updated on plan of care and expected duration. Pain level reassessed. xray at bedside at this time. 14:55 Reassessment: Patient appears in no apparent distress at this time. Patient and/or sg family updated on plan of care and expected duration. Pain level reassessed. Kelley RTT at bedside for attempt to BiPap, pt not tolerating well, will continue to monitor, notified Patient states feeling better. Vital Signs: 12:04 BP 177 / 99; Pulse 152 MON; Resp 34 S; Pulse Ox 92% on R/A; Pain 0/10; sg 12:10 Temp 97.9(TE); sg 12:38 BP 119 / 91; Pulse 122 MON; Resp 26; Pulse Ox 100% on 3 lpm NC; sg 13:21 BP 123 / 58; Pulse 102; rn 13:38 BP 123 / 58; Pulse 100; Resp 19; Pulse Ox 100% on 3 lpm NC; dh3 14:38 BP 119 / 67; Pulse 103; Resp 20; Pulse Ox 98% on 3 lpm NC; dh3 15:19 BP 119 / 67; Pulse 105; Resp 22; Pulse Ox 96% on 3 lpm NC; dh3 16:40 BP 125 / 73; Pulse 91 MON; Resp 21 S; Pulse Ox 99% on 3 lpm NC; Pain 0/10; sg 12:04 Sinus tachycardia sg 16:40 A fib sg ED Course: 12:01 Patient arrived in ED. sg 12:01 Hernan Lopez MD is Private Physician. sg 12:01 Hans Grace MD is Attending Physician. rn 12:08 Triage completed. sg 12:08 Arm band placed on. sg 12:10 Initial lab(s) drawn, by ED staff, sent to lab. Maintain EMS IV. Dressing intact. Site sg clean \T\ dry. Gauge \T\ site: 20 L hand. O2 via BiPap and Xopenex treatment. 12:13 Amaury Dotson, RN is Primary Nurse. sg 12:15 Patient has correct armband on for positive identification. Bed in low position. Call sg light in reach. Side rails up X2. infant nanny on. Pulse ox on. NIBP on. 12:22 EKG done, by management services technician. reviewed by Hans Grace MD. dt2 12:39 Awaiting for x-ray. sg 13:03 XRAY CXR (1 view) In Process Unspecified. EDMS 13:39 First set of blood cultures drawn by me. Inserted saline lock: 20 gauge in left dh3 antecubital area, using aseptic technique. Blood collected. 14:00 CT completed. Patient tolerated procedure well. Patient moved to CT via stretcher. vr Patient moved back from CT. 14:06 CT Chest For PE Angio In Process Unspecified. EDMS 14:06 CT Soft Tissue Neck W/contr In Process Unspecified. EDMS 14:48 Hernan Lopez MD is Hospitalizing Provider. rn 14:58 Second set of blood cultures drawn by me, by venipuncture 23G to right ac. dh3 15:44 No provider procedures requiring assistance completed. Patient admitted, IV remains in sg place. intact, No redness/swelling at site. Administered Medications: 12:05 Drug: Xopenex 1.25 mg Route: Inhalation; hb 12:05 Drug: Xopenex 1.25 mg Route: Inhalation; hb 12:18 Drug: NS 0.9% 500 ml Route: IV; Rate: bolus; Site: left antecubital; hb 12:18 Drug: SOLU-Medrol 125 mg Route: IVP; Site: left antecubital; hb 13:23 Follow up: Response: No adverse reaction sg 12:18 Drug: Magnesium Sulfate 1 grams Route: IVPB; Infused Over: 1 hrs; Site: left hand; hb 13:20 Follow up: Response: No adverse reaction; IV Status: Completed infusion sg 13:30 Drug: Xopenex 1.25 mg Route: Inhalation; sg 13:30 Drug: AtroVENT Aerosol 0.5 mg Route: Inhalation; sg Outcome: 14:49 Decision to Hospitalize by Provider. rn 16:48 Admitted to Tele accompanied by tech, family with patient, via stretcher, with oxygen, sg with chart, Report called to Marycarmen GRAY 16:48 Condition: stable 16:48 Instructed on the need for admit, safety practices, Demonstrated understanding of instructions. 16:51 Patient left the ED. sg Signatures: Dispatcher [employer] EDAmaury Mendoza RN RN sg Nieto, Roman, MD MD rn Davis, Victoria vr Baxter, Heather, RN RN hb Herrera, Deanna 3 Marianela Li dt2 Corrections: (The following items were deleted from the chart) 16:42 16:40 BP 143 / 84; Pulse 122bpm; Resp 21bpm; Spontaneous; Pulse Ox 99% 3 lpm Nasal sg Cannula; Pain 0/10; sg
--- NOTE | 2018-02-04 14:50 | EDPHYS ---
Physician Documentation [facility] Name: Marco Antonio Torrez Age: 82 yrs Sex: Male : 1935 Arrival Date: 02/04/2018 Time: 12:01 Bed 4 Private MD: Hernan Lopez F ED Physician Hans Grace HPI: 02/04 12:09 This 82 yrs old Male presents to ER via EMS with complaints of Breathing rn Difficulty. 12:09 The patient has shortness of breath at rest. Onset: The symptoms/episode began/occurred rn this morning. Duration: The symptoms are continuous. The patient's shortness of breath is alleviated by nebulizer treatment. Severity of symptoms: At their worst the symptoms were moderate in the emergency department the symptoms are unchanged. The patient has experienced similar episodes in the past. Reports shortness of breath, began shortly after breakfast, doesn't recall immediate choking sensation during eating, began about 5-30 minutes after finishing meal, feels like has to cough something up but can't, tried nebs that helped slightly, + COPD. . Historical: - Allergies: 12:03 No Known Allergies; sg - Home Meds: 12:18 prednisone 10 mg Oral Tb24 once daily [Active]; clonazepam 0.5 mg Oral tab 1 tab 3 sg times per day [Active]; mesalamine oral 1.2 gm oral 1 cap 2 times per day for Ulcerative Colitis [Active]; simvastatin 20 mg Oral tab 1 tab once daily [Active]; levothyroxine 88 mcg tab 1 tab once daily [Active]; Arnuity Ellipta 200 mcg/actuation inhalation dsdv 1 puff once daily [Active]; azelastine 0.05 % ophthalmic drop 1 drop 2 times per day [Active]; ProAir HFA 90 mcg/actuation inhalation HFAA 2 puffs every 4 hours [Active]; Anoro Ellipta 62.5-25 mcg/actuation inhalation dsdv 1 puff once daily [Active]; spironolactone 25 mg Oral tab 1 tab 2 times per day [Active]; levofloxacin 500 mg Oral tab 1 tab once daily [Active]; - PMHx: 12:03 Arthritis; Colitis; COPD; Hypothyroidism; PROSTATE CA; sg - PSHx: 12:03 L knee; cryo surgery on prostate to remove cancer; sinus sx; AAA repair; sg - Immunization history:: Adult Immunizations up to date. - Social history:: Smoking status: Patient/guardian denies using tobacco. - Ebola Screening: : Patient negative for fever greater than or equal to 101.5 degrees Fahrenheit, and additional compatible Ebola Virus Disease symptoms Patient denies exposure to infectious person Patient denies travel to an Ebola-affected area in the 21 days before illness onset No symptoms or risks identified at this time. - Family history:: not pertinent. - Hospitalizations: : No recent hospitalization is reported. ROS: 12:09 Constitutional: Negative for fever, chills, and weight loss, Eyes: Negative for injury, rn pain, redness, and discharge, Neck: Negative for injury, pain, and swelling, Cardiovascular: + palpitations Respiratory: + sob and cough Abdomen/GI: Negative for abdominal pain, nausea, vomiting, diarrhea, and constipation, MS/Extremity: Negative for injury and deformity, Skin: Negative for injury, rash, and discoloration, Neuro: Negative for headache, weakness, numbness, tingling, and seizure. Exam: 12:09 Constitutional: This is a well developed, well nourished patient who is awake, alert, rn tripod position and pursed-lip breathing Head/Face: Normocephalic, atraumatic. Eyes: Pupils equal round and reactive to light, extra-ocular motions intact. Lids and lashes normal. Conjunctiva and sclera are non-icteric and not injected. Cornea within normal limits. Periorbital areas with no swelling, redness, or edema. ENT: no oral or pharyngeal foreign body or swelling, no stridor Neck: Trachea midline, no thyromegaly or masses palpated, and no cervical lymphadenopathy. Supple, full range of motion without nuchal rigidity, or vertebral point tenderness. No Meningismus. Cardiovascular: tachycardic, irregular, no murmur Respiratory: + tachypnea, shallow breathing faint wheezing Abdomen/GI: Soft, non-tender, with normal bowel sounds. No distension or tympany. No guarding or rebound. No evidence of tenderness throughout. MS/ Extremity: Pulses equal, no cyanosis. Neurovascular intact. Full, normal range of motion. Equal circumference. Neuro: Awake and alert, GCS 15, oriented to person, place, time, and situation. Cranial nerves II-XII grossly intact. Motor strength 5/5 in all extremities. Sensory grossly intact. Vital Signs: 12:04 BP 177 / 99; Pulse 152 MON; Resp 34 S; Pulse Ox 92% on R/A; Pain 0/10; sg 12:10 Temp 97.9(TE); sg 12:38 BP 119 / 91; Pulse 122 MON; Resp 26; Pulse Ox 100% on 3 lpm NC; sg 13:21 BP 123 / 58; Pulse 102; rn 13:38 BP 123 / 58; Pulse 100; Resp 19; Pulse Ox 100% on 3 lpm NC; dh3 14:38 BP 119 / 67; Pulse 103; Resp 20; Pulse Ox 98% on 3 lpm NC; dh3 15:19 BP 119 / 67; Pulse 105; Resp 22; Pulse Ox 96% on 3 lpm NC; dh3 16:40 BP 125 / 73; Pulse 91 MON; Resp 21 S; Pulse Ox 99% on 3 lpm NC; Pain 0/10; sg 12:04 Sinus tachycardia sg 16:40 A fib sg MDM: 12:01 Patient medically screened. rn 14:34 Differential diagnosis: Bronchitis Chronic Obstructive Pulmonary Disease Myocardial rn Infarction pneumonia, Pneumothorax pulmonary edema, Pulmonary Embolism reactive airway disease. Data reviewed: vital signs, nurses notes, lab test result(s), EKG, radiologic studies, and as a result, I will admit patient. Counseling: I had a detailed discussion with the patient and/or guardian regarding: the historical points, exam findings, and any diagnostic results supporting the discharge/admit diagnosis, lab results, radiology results, the need for further work-up and treatment in the hospital. Response to treatment: the patient's symptoms have mildly improved after treatment, and as a result, I will admit patient. 14:47 ED course: Will admit pt to Dr. Lopez, with dr. Hernadez consult. . rn 02/04 12:03 Order name: Blood Culture Adult (2) rn 02/04 12:03 Order name: BMP; Complete Time: 12:42 rn 02/04 12:03 Order name: CBC with Diff; Complete Time: 13:04 rn 02/04 12:03 Order name: Magnesium; Complete Time: 12:42 rn 02/04 12:03 Order name: NT PRO-BNP; Complete Time: 12:42 rn 02/04 12:03 Order name: PT-INR; Complete Time: 12:42 rn 02/04 12:03 Order name: XRAY CXR (1 view); Complete Time: 14:26 rn 02/04 12:03 Order name: Ptt, Activated; Complete Time: 12:42 rn 02/04 12:03 Order name: Troponin (emerg Dept Use Only); Complete Time: 12:42 rn 02/04 12:59 Order name: Manual Differential; Complete Time: 13:04 EDMS 02/04 13:21 Order name: CT Chest For PE Angio; Complete Time: 14:26 rn 02/04 13:21 Order name: CT Soft Tissue Neck W/contr; Complete Time: 14:26 rn 02/04 14:32 Order name: BIPAP rn 02/04 12:03 Order name: EKG; Complete Time: 12:04 rn 02/04 12:03 Order name: Cardiac monitoring; Complete Time: 12:18 rn 02/04 12:03 Order name: EKG - Nurse/Tech; Complete Time: 12:18 rn 02/04 12:03 Order name: IV Saline Lock; Complete Time: 12:18 rn 02/04 12:03 Order name: Labs collected and sent; Complete Time: 12:18 rn 02/04 12:03 Order name: O2 Per Protocol; Complete Time: 12:18 rn 02/04 12:03 Order name: O2 Sat Monitoring; Complete Time: 12:18 rn Administered Medications: 12:05 Drug: Xopenex 1.25 mg Route: Inhalation; hb 12:05 Drug: Xopenex 1.25 mg Route: Inhalation; hb 12:18 Drug: NS 0.9% 500 ml Route: IV; Rate: bolus; Site: left antecubital; hb 12:18 Drug: SOLU-Medrol 125 mg Route: IVP; Site: left antecubital; hb 13:23 Follow up: Response: No adverse reaction sg 12:18 Drug: Magnesium Sulfate 1 grams Route: IVPB; Infused Over: 1 hrs; Site: left hand; hb 13:20 Follow up: Response: No adverse reaction; IV Status: Completed infusion sg 13:30 Drug: Xopenex 1.25 mg Route: Inhalation; sg 13:30 Drug: AtroVENT Aerosol 0.5 mg Route: Inhalation; sg Disposition: 14:49 Critical Care:. rn Disposition: 02/04/18 14:49 Hospitalization ordered by Hernan Lopez for Inpatient Admission. Preliminary diagnosis are Chronic obstructive pulmonary disease with (acute) exacerbation, Hypoxemia, Lung mass. - Bed requested for Telemetry/MedSurg (Inpatient). - Status is Inpatient Admission. sg - Condition is Stable. - Problem is new. - Symptoms have improved. UTI on Admission? No Critical care time excluding procedures: 14:49 Critical care time: Bedside Care: 25 minutes, Family Intervention: 5 minutes. Total rn time: 30 minutes Signatures: Dispatcher [employer] EDRaquel Cobb RN RN dw Gay, Steven, RN RN sg Hans Grace MD MD rn Baxter, Heather, RN RN Geni Blanc Corrections: (The following items were deleted from the chart) 15:06 14:49 Hospitalization Ordered by Hernan Lopez MD for Inpatient Admission. Preliminary eb diagnosis is Chronic obstructive pulmonary disease with (acute) exacerbation; Hypoxemia; Lung mass. Bed requested for Telemetry/MedSurg (Inpatient). Status is Inpatient Admission. Condition is Stable. Problem is new. Symptoms have improved. UTI on Admission? No. rn 15:43 15:06 02/04/2018 14:49 Hospitalization Ordered by Hernan Lopez MD for Inpatient dw Admission. Preliminary diagnosis is Chronic obstructive pulmonary disease with (acute) exacerbation; Hypoxemia; Lung mass. Bed requested for Telemetry/MedSurg (Inpatient). Status is Inpatient Admission. Condition is Stable. Problem is new. Symptoms have improved. UTI on Admission? No. eb 16:51 15:43 02/04/2018 14:49 Hospitalization Ordered by Hrenan Lopez MD for Inpatient sg Admission. Preliminary diagnosis is Chronic obstructive pulmonary disease with (acute) exacerbation; Hypoxemia; Lung mass. Bed requested for Telemetry/MedSurg (Inpatient). Status is Inpatient Admission. Condition is Stable. Problem is new. Symptoms have improved. UTI on Admission? No. dw
[2018-02-04] MEDS ORDERED: IPRATROPIUM BROM 0.5MG/2.5ML NEB PRN (17:15)
[2018-02-04] MEDS ORDERED: ONDANSETRON 4 MG/2 ML VIAL IV PRN (17:15)
[2018-02-04 17:49] VITALS: BMI 25.8
[2018-02-04] MEDS: D5 0.45 NS 1,000 ML IV SCH (18:08)
[2018-02-04] MEDS: METHYLPREDNISOLONE 40 MG INJ IV SCH (18:09)
[2018-02-05] MEDS: METHYLPREDNISOLONE 40 MG INJ IV SCH ×3 (00:37→17:04)
[2018-02-05] MEDS: D5 0.45 NS 1,000 ML IV SCH ×3 (00:37→20:40)
[2018-02-05 05:36] LABS: Absolute Lymphocytes (CBC) 0.2 K/uL (0.7-4.9); Absolute Monocytes 0.2 K/uL (0.1-1.3); Absolute Neutrophil 7.2 K/uL (1.8-8.0); Basophils % 0.1 % (0-1.3); Hematocrit 30.3 % (39.6-49.0); Lymphocytes % 2.8 % (15.3-44.8); MCH 31.6 pg (27.0-35.0); MCV 95.2 fL (80-100); Monocytes % 2.8 % (3.3-12.3); RBC Red Blood Cell Count 3.19 M/uL (4.33-5.43)
[2018-02-05 05:56] LABS: BUN Blood Urea Nitrogen 15 mg/dL (7-18); Bicarbonate 33 mmol/L (21-32); Glucose Level 319 mg/dL (74-106); Potassium 5.1 mmol/L (3.5-5.1); Sodium Level 136 mmol/L (136-145)
--- NOTE | 2018-02-05 08:04 | EKG ---
Test Date: 2018-02-04 Test Time: 23:57:03 Meter Record Clerk: RT-R MEASUREMENT RESULTS: Intervals: Rate: 73 CT: QRSD: 48 QT: 390 QTc: 429 [place]: P: CT: QRS: 51 T: 67 INTERPRETIVE STATEMENTS: Atrial flutter with variable AV block Septal infarct, age undetermined Abnormal ECG Compared to ECG 02/04/2018 12:12:44 Sinus tachycardia no longer present Atrial premature complex(es) no longer present Myocardial infarct finding still present Electronically Signed On 02-05-18 08:03:11 CDT by William Villa
[2018-02-05] MEDS: ASPIRIN EC 81 MG TAB PO SCH (08:40)
--- NOTE | 2018-02-05 09:50 | P.CNS ---
Date of Consult: 02/05/18 Chief Complaint: Shortness of breath abnormal CT scan History of Present Illness: Patient is 82 years of age well known to me with a history of terminal COPD is been again progressively declining he just recently discharged and since discharge according to his relatives he has become weaker has been having bowel movements with urination as causing some management problems patient is too weak admission precipitated by a excessive coughing phlegm production denies any fever or chills is back to his baseline and is compliant with his medication CT scan did show a right hilar lung mass presumptive lung cancer Allergies No Known Allergies Allergy (Verified 01/09/18 02:22) Home Medications: Albuterol Sulfate [Ventolin Hfa] 2 puff PO QID 02/04/18 Azelastine HCl 1 drop OP BID 02/04/18 Fluticasone Furoate [Arnuity Ellipta] 200 mcg IH DAILY 02/04/18 Ipratropium [Atrovent 0.03% (21MCG)/[place] Nasal*] 2 sprays JEANCARLOS TID 02/04/18 Ipratropium/Albuterol Sulfate [Iprat-Albut 0.5-3(2.5) mg/3 ml] 1 vial NEB TID Levothyroxine [Synthroid*] 88 mcg PO DAILY 02/04/18 Mesalamine 1.2 gm PO BID 02/04/18 Simvastatin 20 mg PO BEDTIME 02/04/18 Spironolactone [Aldactone*] 25 mg PO BID 02/04/18 Umeclidinium Brm/Vilanterol Tr [Anoro Ellipta 62.5-25 Mcg INH] 1 puff PO DAILY 02/04/18 clonazePAM [Clonazepam] 0.5 mg PO TID PRN 02/04/18 predniSONE [Deltasone*] 10 mg PO DAILY 02/04/18 - Past Medical/Surgical History Diabetic: No -: Terminal COPD -: colitis -: arthritis -: Hypothyrodism -: Prostate cancer -: AAA repair and stent placement -: Cryo surgery for Prostate -: left knee surgery -: AAA repair and stent - Family History Father Medical History: Heart disease Mother Medical History: Heart disease - Social History Smoking Status: Former smoker Alcohol use: No CD- Drugs: No Caffeine use: Yes Place of Residence: Home Review of Systems General: Weakness Respiratory: Shortness of Breath Gastrointestinal: Diarrhea Neurological: Weakness Physical Examination Temp Pulse Resp BP Pulse Ox 96.9 F 80 18 114/62 99 02/05/18 08:00 02/05/18 08:00 02/05/18 08:00 02/05/18 08:00 02/05/18 08:00 General: Alert, Oriented x3, Moderate distress HEENT: Atraumatic Neck: Supple Respiratory: Diminished Cardiovascular: Edema (1+ edema) Gastrointestinal: Normal bowel sounds, Soft and benign Musculoskeletal: No clubbing Laboratory Data (last 24 hrs) 02/04/18 12:07: PT 12.8 H, INR 1.08, APTT 25.1 02/04/18 12:07: WBC 10.4, Hgb 11.9 L, Hct 35.9 L, Plt Count 489 H 02/04/18 12:07: Sodium 134 L, Potassium 4.5, BUN 16, Creatinine 0.70, Glucose 187 H, Magnesium 2.5 H - Problems (1) COPD exacerbation Onset Date: 10/02/16 Current Visit: No Status: Acute Plan: Patient is 82 years of age admitted with COPD exacerbation. He has terminal COPD right hilar lung mass presumed lung cancer he is not a candidate for lung biopsy chemo radiation or surgery discuss with family members he is not even a candidate for any biopsy due to his significant underlying debility continue with bronchodilators steroids agreed a C. difficile toxin study he does have bowel incontinence with the urination labs reviewed. Patient oxygenation is stable mildly edematous resume his home medications titrate sat to 90% do ABGs I have added brought Wanna and Atrovent scheduled CT scan shows COPD changes no evidence of thromboemboli empiric cefepime therapy sputum Gram stain he is high risk for resistant lung infections
[2018-02-05] MEDS: ARFORMOTEROL TARTRATE 15 MCG/2 ML VIAL.NEB NEB SCH ×2 (10:04→20:08)
[2018-02-05 11:14] LABS: Arterial Blood Carboxyhemoglob 1.3 % (0-1.5); Blood Gas Oxyhemoglobin 88.5 % (94-97); Blood O2 Saturation 90.4 % (92-98.5)
[2018-02-05] MEDS: CEFEPIME/SWI 1gm 1 GM/10 ML SYR IV SCH ×2 (11:18→20:41)
[2018-02-05] MEDS: IPRATROPIUM BROM 0.5MG/2.5ML NEB SCH ×2 (13:45→20:08)
[2018-02-05] MEDS: SPIRONOLACTONE 25 MG TABLET PO SCH ×2 (13:51→20:39)
[2018-02-05] MEDS: clonazePAM 0.5 MG TAB PO PRN (14:45)
[2018-02-05] MEDS ORDERED: HOME MED 1 EA UNK (Mesalamine [Mesalamine] 1.2 GM) PO SCH (21:00)
[2018-02-05] MEDS ORDERED: CEFEPIME 1 GM/VIAL IV SCH (21:00)
--- NOTE | 2018-02-05 21:20 | HP ---
Date of Admission: 02/04/2018 History Of Present Illness: The patient is 82-year-old male with end-stage COPD and following also Tawnya Hernadez. He came back to the emergency room with increased shortness of breath and fatigue and c oughing. He was found to have acute respiratory failure on top of chronic and he was admitted for th at. Review of Systems: Pulmonary: Shortness of breath and fatigue as above. Cardiovascular: No complaints. Genitourinary: No complaints. Skeletomuscular: No complaints. Neurological: No complaints. Gastrointestinal: No complaints. Past Medical History: 1.COPD, advanced. 2.Hypothyroidism. 3.Hyperlipidemia. 4.Osteoarthritis. 5.Colitis. 6.Abdominal aortic aneurysm. 7.Prostate cancer, status post prior surgery. Social History: Ex-smoker. Denies alcohol or drug abuse history. Family History: Noncontributory. Medications: Albuterol 2 puffs q.i.d., azelastine 1 drop b.i.d., ipratropium 2 puffs t.i.d., prednis one 10 mg p.o. daily, simvastatin 20 mg p.o. daily, clonazepam 0.5 0.5 mg p.o. daily, levothyroxine 0 .088 p.o. daily, fluticasone 200 mcg Ellipta, and spironolactone 25 mg p.o. daily. Allergies: NO KNOWN DRUG ALLERGIES. Physical Examination: Vital signs: Blood pressure 115/60, pulse 80, and temperature 96.9. Heart: Regular rate and rhythm. Chest: Poor lung filling with decreased air movement. Abdomen: Soft, benign. Neurologic: Alert, oriented. Grossly intact. Extremities: No edema. No cyanosis. Peripheral pulses are felt. Diagnostic Data: The patient's chest x-ray, COPD. Chest CT, COPD along with spiculated soft tissue mass in the hilar region, however, that is the initial report. Laboratory Data: CBC, white cell count 7.7, hemoglobin 10.1, hematocrit 30.3, and platelets 263. AB Gs, pH 7.38, pCO2 54.6, pO2 61.2, and saturation 90.4. This is on room air. Chemistry noted. Gluco se 219. Assessment And Plan: The patient is being admitted. Put him on IV steroids and bronchodilators, oxy gen protocol, and IV antibiotic, cefepime. Dr. Hernadez has been consulted. Also, the patient had f requent watery soft bowel motions. We will go ahead and ask for C difficile toxin. His lung mass ag ain not amicable to any workup, biopsy, or treatment like chemoradiation therapy because of the patie nt's poor general condition. Look orders for details. MFS/MODL Voice ID: [id number]
[2018-02-06] MEDS: METHYLPREDNISOLONE 40 MG INJ IV SCH ×2 (00:34→09:15)
[2018-02-06] MEDS: IPRATROPIUM BROM 0.5MG/2.5ML NEB SCH ×4 (02:29→20:18)
[2018-02-06] MEDS: clonazePAM 0.5 MG TAB PO PRN ×2 (02:50→20:56)
[2018-02-06] MEDS: LEVOTHYROXINE SOD 0.088 MG TAB PO SCH (05:26)
[2018-02-06] MEDS: ACETAMINOPHEN 500 MG TAB PO PRN ×2 (06:10→22:17)
[2018-02-06 06:39] LABS: Absolute Lymphocytes (CBC) 0.1 K/uL (0.7-4.9); Absolute Monocytes 0.8 K/uL (0.1-1.3); Absolute Neutrophil 11.2 K/uL (1.8-8.0); Basophils % 0.1 % (0-1.3); Hematocrit 30.9 % (39.6-49.0); Lymphocytes % 0.9 % (15.3-44.8); MCH 31.3 pg (27.0-35.0); MCV 94.9 fL (80-100); MPV 7.6 fL (7.6-11.3); Monocytes % 6.6 % (3.3-12.3); RBC Red Blood Cell Count 3.26 M/uL (4.33-5.43)
[2018-02-06 06:45] LABS: BUN Blood Urea Nitrogen 14 mg/dL (7-18); Bicarbonate 32 mmol/L (21-32); Glucose Level 265 mg/dL (74-106); Potassium 4.6 mmol/L (3.5-5.1); Sodium Level 133 mmol/L (136-145)
[2018-02-06] MEDS: ALBUTEROL 2.5 MG/3 ML NEB SOL NEB PRN (07:33)
[2018-02-06] MEDS: ARFORMOTEROL TARTRATE 15 MCG/2 ML VIAL.NEB NEB SCH ×2 (07:34→20:18)
[2018-02-06] MEDS: D5 0.45 NS 1,000 ML IV SCH ×2 (09:12→09:15)
[2018-02-06] MEDS: ARNUITY ELLIPTA 200 MCG IH SCH (09:13)
[2018-02-06] MEDS: CEFEPIME/SWI 1gm 1 GM/10 ML SYR IV SCH ×2 (09:13→20:30)
[2018-02-06] MEDS: MESALAMINE 1.2 GM PO SCH ×2 (09:15→20:31)
[2018-02-06] MEDS: SPIRONOLACTONE 25 MG TABLET PO SCH ×2 (09:16→20:30)
[2018-02-06] MEDS: ASPIRIN EC 81 MG TAB PO SCH (09:16)
[2018-02-06] MEDS ORDERED: LOPERAMIDE HCL 2 MG CAPSULE PO PRN (10:01)
--- NOTE | 2018-02-06 10:30 | P.PN ---
Subjective Date of Service: 02/06/18 Chief Complaint: COPD exacerbation Patient's condition is stable he is still profoundly weak still has fecal incontinence slight cough Review of Systems General: Weakness Respiratory: Shortness of Breath Physical Examination - Vital Signs Temperature: 97 F Blood Pressure: 139/68 Pulse: 110 Respirations: 18 Pulse Ox (%): 97 - Physical Exam General: Alert, Oriented x3, Moderate distress Neck: Supple Respiratory: Clear to auscultation bilaterally, Diminished Cardiovascular: No edema, Normal S1 S2 Assessment & Plan - Problems (Diagnosis) (1) COPD exacerbation Onset Date: 10/02/16 Current Visit: No Status: Acute Plan: Patient admitted with COPD exacerbation he is weak also has fecal incontinence started him on some Flagyl C difficile toxin pending also added Imodium reduce dose of prednisone Dc cefepime ABGs satisfactory on room air mildly hypercapnic I have also added dial arrest physical therapy prognosis very poor
[2018-02-06] MEDS: ROFLUMILAST 500 MCG TABLET PO SCH (11:11)
[2018-02-06] MEDS: ENOXAPARIN 40 MG/0.4 ML SQ SCH (11:11)
[2018-02-06] MEDS: METRONIDAZOLE 500mg IVPB 500 MG/100 ML BAG IV SCH ×2 (11:12→17:31)
[2018-02-06] MEDS: predniSONE 20 MG TAB PO SCH (20:30)
[2018-02-06] MEDS ORDERED: CEFEPIME 1 GM/VIAL IV SCH (21:00)
[2018-02-07] MEDS: METRONIDAZOLE 500mg IVPB 500 MG/100 ML BAG IV SCH ×3 (01:28→16:46)
[2018-02-07] MEDS: IPRATROPIUM BROM 0.5MG/2.5ML NEB SCH ×4 (01:42→19:37)
[2018-02-07 05:05] LABS: Absolute Lymphocytes (CBC) 0.1 K/uL (0.7-4.9); Absolute Monocytes 0.8 K/uL (0.1-1.3); Absolute Neutrophil 10.3 K/uL (1.8-8.0); Basophils % 0.2 % (0-1.3); Eosinophils % 0.1 % (0-4.4); Hematocrit 29.7 % (39.6-49.0); Lymphocytes % 1.1 % (15.3-44.8); MCH 31.8 pg (27.0-35.0); MCV 93.7 fL (80-100); MPV 7.5 fL (7.6-11.3); Monocytes % 7.4 % (3.3-12.3); RBC Red Blood Cell Count 3.17 M/uL (4.33-5.43)
[2018-02-07 05:18] LABS: BUN Blood Urea Nitrogen 17 mg/dL (7-18); Bicarbonate 33 mmol/L (21-32); Glucose Level 179 mg/dL (74-106); Potassium 4.7 mmol/L (3.5-5.1); Sodium Level 133 mmol/L (136-145)
[2018-02-07] MEDS: LEVOTHYROXINE SOD 0.088 MG TAB PO SCH (05:55)
[2018-02-07] MEDS: ARFORMOTEROL TARTRATE 15 MCG/2 ML VIAL.NEB NEB SCH ×2 (08:19→19:37)
[2018-02-07] MEDS: ENOXAPARIN 40 MG/0.4 ML SQ SCH (09:17)
[2018-02-07] MEDS: SPIRONOLACTONE 25 MG TABLET PO SCH ×2 (09:17→20:34)
[2018-02-07] MEDS: predniSONE 20 MG TAB PO SCH ×2 (09:17→20:35)
[2018-02-07] MEDS: CEFEPIME/SWI 1gm 1 GM/10 ML SYR IV SCH ×2 (09:17→20:34)
[2018-02-07] MEDS: ASPIRIN EC 81 MG TAB PO SCH (09:17)
[2018-02-07] MEDS: ROFLUMILAST 500 MCG TABLET PO SCH (09:17)
[2018-02-07] MEDS: ARNUITY ELLIPTA 200 MCG IH SCH (09:18)
[2018-02-07] MEDS: MESALAMINE 1.2 GM PO SCH ×2 (09:18→20:33)
[2018-02-07] MEDS: clonazePAM 0.5 MG TAB PO PRN ×2 (11:15→20:34)
[2018-02-07] MEDS: ACETAMINOPHEN 500 MG TAB PO PRN (18:19)
[2018-02-08] MEDS: METRONIDAZOLE 500mg IVPB 500 MG/100 ML BAG IV SCH ×2 (00:11→09:00)
[2018-02-08] MEDS: IPRATROPIUM BROM 0.5MG/2.5ML NEB SCH ×4 (01:26→20:00)
[2018-02-08] MEDS: LEVOTHYROXINE SOD 0.088 MG TAB PO SCH (06:08)
[2018-02-08] MEDS: ALBUTEROL 2.5 MG/3 ML NEB SOL NEB PRN ×3 (07:40→19:30)
[2018-02-08] MEDS: ARFORMOTEROL TARTRATE 15 MCG/2 ML VIAL.NEB NEB SCH ×2 (07:43→20:00)
[2018-02-08] MEDS: MESALAMINE 1.2 GM PO SCH ×2 (09:00→20:45)
[2018-02-08] MEDS: ARNUITY ELLIPTA 200 MCG IH SCH (09:00)
[2018-02-08] MEDS: clonazePAM 0.5 MG TAB PO PRN ×2 (09:59→20:44)
[2018-02-08] MEDS: ASPIRIN EC 81 MG TAB PO SCH (10:00)
[2018-02-08] MEDS: ROFLUMILAST 500 MCG TABLET PO SCH (10:00)
[2018-02-08] MEDS: predniSONE 20 MG TAB PO SCH ×2 (10:01→20:44)
[2018-02-08] MEDS: CEFEPIME/SWI 1gm 1 GM/10 ML SYR IV SCH (10:01)
[2018-02-08] MEDS: SPIRONOLACTONE 25 MG TABLET PO SCH ×2 (10:01→20:44)
[2018-02-08] MEDS: ENOXAPARIN 40 MG/0.4 ML SQ SCH (10:02)
[2018-02-08] MEDS: VANCOMYCIN ORAL SOLN 250 MG/5 ML OSYR PO SCH ×4 (10:24→20:45)
--- NOTE | 2018-02-08 14:50 | PN ---
Subjective: The patient still has loose bowel motions. Objective: Vital Signs: His blood pressure 140/65, pulse 60, temperature 97.2. Heart: Regular rate and rhythm. Chest: Clear to auscultation. Abdomen: Soft, nontender. Bowel sounds are active. Extremities: No edema. No cyanosis. Peripheral pulses are felt. Neurologic: Alert, oriented, grossly intact. Laboratory Data: The patient's stools again positive for C difficile toxin. CBC and chem-7 noted. Assessment And Plan: 1.Chronic obstructive pulmonary disease exacerbation. The patient is stable from that standpoint on his current home medications for bronchodilators and oxygen protocol. 2.Clostridium difficile toxin. We will go ahead and put the patient on oral vancomycin 125 mg p.o. 4 times a day. Expect improvement in his diarrhea and once that starts happening, the patient is drew dy to be discharged. However, at this point with the patient being fatigued, weak with his chronic o bstructive pulmonary disease and Clostridium difficile toxin, diarrhea and chronic medical illnesses, the family have requested that the patient be discharged to a half-way and at this time, we will go ahead and ask nursing home social worker consult to arrange for that. Meanwhile, we will continue above del ineated treatment. MFS/MODL Voice ID: [id number] Report ID: [id number]
[2018-02-08] MEDS: ACETAMINOPHEN 500 MG TAB PO PRN ×2 (15:50→20:52)
[2018-02-09] MEDS: IPRATROPIUM BROM 0.5MG/2.5ML NEB SCH ×5 (02:00→19:42)
[2018-02-09] MEDS: ALBUTEROL 2.5 MG/3 ML NEB SOL NEB PRN ×4 (02:28→19:40)
[2018-02-09] MEDS: LEVOTHYROXINE SOD 0.088 MG TAB PO SCH (06:16)
[2018-02-09] MEDS: ARFORMOTEROL TARTRATE 15 MCG/2 ML VIAL.NEB NEB SCH ×2 (08:10→19:40)
[2018-02-09] MEDS: MESALAMINE 1.2 GM PO SCH ×2 (08:38→20:38)
[2018-02-09] MEDS: SPIRONOLACTONE 25 MG TABLET PO SCH ×2 (08:39→20:39)
[2018-02-09] MEDS: ROFLUMILAST 500 MCG TABLET PO SCH (08:39)
[2018-02-09] MEDS: clonazePAM 0.5 MG TAB PO PRN ×2 (08:39→20:38)
[2018-02-09] MEDS: predniSONE 20 MG TAB PO SCH ×2 (08:40→20:38)
[2018-02-09] MEDS: ASPIRIN EC 81 MG TAB PO SCH (08:41)
[2018-02-09] MEDS: ARNUITY ELLIPTA 200 MCG IH SCH (08:41)
[2018-02-09] MEDS: ENOXAPARIN 40 MG/0.4 ML SQ SCH (08:41)
[2018-02-09] MEDS: VANCOMYCIN ORAL SOLN 250 MG/5 ML OSYR PO SCH ×4 (08:45→20:39)
[2018-02-09 13:29] LABS: BUN Blood Urea Nitrogen 15 mg/dL (7-18); Bicarbonate 36 mmol/L (21-32); Glucose Level 174 mg/dL (74-106); Potassium 4.7 mmol/L (3.5-5.1); Sodium Level 131 mmol/L (136-145)
--- NOTE | 2018-02-09 13:48 | PN ---
Subjective: The patient diarrhea. No new complaints. Objective: Vital Signs: Blood pressure 144/75, pulse 113, temperature 96.9. Heart: Tachycardic, regular rate. Chest: Clear. No wheezing. Decreased air movement. Abdomen: Soft, benign. Bowel sounds are active. Extremities: No edema. No cyanosis. Peripheral pulses are felt. Neurological examination: Alert, oriented, grossly intact. Diagnostic Data: EKG showed atrial flutter with variable degree of AV block. Assessment And Plan: 1.Clostridium difficile diarrhea, resolving. 2.Chronic obstructive pulmonary disease exacerbation, back to baseline. 3.Arrhythmia, likely secondary to chronic hypoxia and chronic obstructive pulmonary disease, however we will ask Cardiology consult about the patient's atrial flutter. 4.Generalized fatigue, pending Social Service recommendations for [facility] placement. Look jessie smith for details. MFS/MODL Voice ID: [id number] Report ID: [id number]
[2018-02-09] MEDS: ACETAMINOPHEN 500 MG TAB PO PRN ×2 (14:59→21:25)
[2018-02-09] MEDS: METOPROLOL TAR 25 MG TAB PO SCH (18:53)
--- NOTE | 2018-02-10 01:48 | CON ---
Date of Consultation: 02/09/2018 Reason For Consultation: Atrial flutter. History Of Present Illness: Mr. Torrez is an 82-year-old male, has been in the hospital since January. He is here because of COPD, history of lung mass, and he is planning to go to a skilled nurs ing facility. While he was being evaluated, he was noted to be in atrial flutter. He has a history of abdominal aortic aneurysm repair. No cardiac symptoms reported. Past Medical History: As stated above. Allergies: NONE. Review of Systems: Negative. Social History: Negative. Family History: Noncontributory. Medications: Now do not include any beta-leeann. Most of it is related to inhalers. Physical Examination: Vital Signs: Stable. He is in atrial fibrillation with rate of 90. HEENT: Negative. Neck: Supple. No bruit. Chest: Clear. Cardiac: Normal. Abdomen: Benign. Extremities: Reveal no clubbing, cyanosis, or edema. Diagnostic Data: Unremarkable. The last echo in 2017 had an ejection fraction of 62%. Impression And Plan: New-onset atrial flutter. The patient is not a candidate for anticoagulation c onsidering lung mass and chronic obstructive pulmonary disease and overall functional status. I woul d like to repeat an echocardiogram to make sure he is on aspirin. He is already on Lovenox. I would like to start him on Lopressor 25 mg b.i.d. He is fairly rate controlled. I will discuss the case further with Dr. Lopez. OCTAVIANO/ABRIL Voice ID: [id number] Report ID: [id number]
[2018-02-10] MEDS: IPRATROPIUM BROM 0.5MG/2.5ML NEB SCH ×3 (01:56→14:00)
[2018-02-10] MEDS: LEVOTHYROXINE SOD 0.088 MG TAB PO SCH (06:11)
[2018-02-10] MEDS: METOPROLOL TAR 25 MG TAB PO SCH ×2 (06:11→17:17)
[2018-02-10] MEDS: ALBUTEROL 2.5 MG/3 ML NEB SOL NEB PRN (07:47)
[2018-02-10] MEDS: ARFORMOTEROL TARTRATE 15 MCG/2 ML VIAL.NEB NEB SCH (07:47)
--- NOTE | 2018-02-10 07:50 | P.PN ---
Subjective Date of Service: 02/10/18 Chief Complaint: COPD exacerbation Patient's condition is stable no new changes patient weak awaiting transfer to another facility still having diarrhea although much improved C. difficile positive Review of Systems General: Weakness Respiratory: Shortness of Breath Physical Examination - Vital Signs Temperature: 97.2 F Blood Pressure: 119/68 Pulse: 69 Respirations: 14 Pulse Ox (%): 100 - Physical Exam General: Alert, Oriented x3 HEENT: Atraumatic Neck: Supple Respiratory: Clear to auscultation bilaterally, Diminished Cardiovascular: No edema, Normal S1 S2, Edema - Studies Microbiology Data (last 24 hrs): 02/04/18 13:39 Blood - Blood Aerobic Blood Culture - Final No growth in 5 days. 02/04/18 13:39 Blood - Blood Anaerobic Blood Culture - Final No growth in 5 days. Assessment & Plan - Problems (Diagnosis) (1) COPD exacerbation Onset Date: 10/02/16 Current Visit: No Status: Acute Plan: Patient admitted with COPD exacerbation condition stable awaiting transfer to a SNFunit patient is on maximum bronchodilator therapy resume prednisone 10 mg twice a day (2) C. difficile diarrhea Current Visit: Yes Status: Acute Plan: Patient is on oral vancomycin
[2018-02-10] MEDS ORDERED: predniSONE 10 MG TAB PO SCH (09:00)
[2018-02-10] MEDS: ARNUITY ELLIPTA 200 MCG IH SCH (09:00)
[2018-02-10 09:05] VITALS: TEMP 97
[2018-02-10 09:12] VITALS: O2SAT 98
[2018-02-10] MEDS: VANCOMYCIN ORAL SOLN 250 MG/5 ML OSYR PO SCH ×3 (09:28→17:17)
[2018-02-10] MEDS: SPIRONOLACTONE 25 MG TABLET PO SCH (09:28)
[2018-02-10] MEDS: ASPIRIN EC 81 MG TAB PO SCH (09:28)
[2018-02-10] MEDS: ENOXAPARIN 40 MG/0.4 ML SQ SCH (09:28)
[2018-02-10] MEDS: ROFLUMILAST 500 MCG TABLET PO SCH (09:28)
[2018-02-10] MEDS: MESALAMINE 1.2 GM PO SCH (09:29)
[2018-02-10 12:46] VITALS: BP 126/60
[2018-02-10] MEDS: ACETAMINOPHEN 500 MG TAB PO PRN (15:29)
--- NOTE | 2018-02-10 18:55 | PN ---
Subjective: The patient has no new complaints. Had few loose stools, but much better than before. No increased shortness of breath, is comfortable from that standpoint on oxygen. Objective: Vital Signs: Blood pressure 125/60, pulse 76, temperature 97. Heart: Regular rate and rhythm. Chest: decreased air movement, otherwise clear to auscultation. Abdomen: Soft, benign, nontender. Bowel sounds are active. Extremities: no edema. No cyanosis. Peripheral pulses are felt. Neurologic: Alert and oriented. Nonfocal. Grossly intact. Assessment And Plan: 1.Clostridium difficile toxin, diarrhea, better, but still present. We will continue vancomycin ora lly. 2.Chronic obstructive pulmonary disease exacerbation. The patient has been stabilized on current tr eatment regimen. 3.New-onset atrial flutter. Appreciate cardiology input. The patient is on Lopressor and aspirin. As per cardiology recommendation, no further intervention is recommended. 4.Pending social services counselor and recommendations for transfer to [facility] facility. We will contin ue above current treatment. MFS/MODL Voice ID: [id number] Report ID: [id number]
== END 2018-02-10 18:30 | DRG 189 ==
LOC: ER 12:00 → ERHOLD 14:49 → 4TH 16:41
PROVIDERS: ADMIT Internal Medicine; ATTEND Internal Medicine
DX: J96.20 Acute and chronic respiratory failure, unspecified whether with hypoxia or hypercapnia (principal); J44.1 Chronic obstructive pulmonary disease with (acute) exacerbation; A04.72 Enterocolitis due to Clostridium difficile, not specified as recurrent; I48.92 Unspecified atrial flutter; C34.01 Malignant neoplasm of right main bronchus; E03.9 Hypothyroidism, unspecified; E78.5 Hyperlipidemia, unspecified; M19.90 Unspecified osteoarthritis, unspecified site; Z85.46 Personal history of malignant neoplasm of prostate; Z79.52 Long term (current) use of systemic steroids; Z87.891 Personal history of nicotine dependence; Z99.81 Dependence on supplemental oxygen
CPT/HCPCS: 36415; 70491; 71045; 71275; 80048; 82805; 83605; 83735; 83880; 84484; 85025; 85610; 85730; 87040; 87070; 87205; 87493; 93005; 94640; 94760; 96365; 96375; 97163; 99285; J0692; J1650; J2920; J2930; J3475; J7512; J7605; Q9967